=== PATIENT | female | born 1990 | race Caucasian/White ===

== ENCOUNTER 2022-10-01 19:00 | Emergency (ER) | payer OTHER, SELFPAY ==
--- NOTE | ~2022-10-01 | XR_ITS ---
EXAMINATION: XR SHOULDER, RIGHT CLINICAL INFORMATION: Muscular pain COMPARISON: None available. TECHNIQUE: Three views of the right shoulder. FINDINGS: The bones and soft tissues are normal. No fracture. Glenohumeral and acromioclavicular alignment is anatomic with normal joint space. No abnormal soft tissue calcifications. XR/XR shoulder RT min 2V IMPRESSION: Normal right shoulder.
[2022-10-01 19:13] VITALS: BP 136/65; BP 160/100; PULSE 61; PULSE 70; RESP 16; TEMP 36.9; O2SAT 100; BMI 24.2
[2022-10-01] MEDS: Ibuprofen 600 MG TABLET PO (19:22)
--- NOTE | 2022-10-01 19:51 | ED.EXTPRO ---
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 comes here for right shoulder pain last few days no direct trauma says this happened after exercise pain in the right rhomboids area patient ambulatory does not seem to be in any distress Related Data Previous Rx's Medication Instructions Recorded ibuprofen 600 mg tablet 600 mg PO Q6H PRN fever or pain 10/01/22 #30 tabs Allergies Allergy/AdvReac Type Severity Reaction Status Date / Time amoxicillin Allergy Hives Verified 10/01/22 19:12 Review of Systems Review of Systems: Yes all other systems are reviewed and are negative [facility] Social History Social History Alcohol intake: current Alcohol intake frequency: holidays/special occasions only Smoked in Last 30 Days: Yes Use of substances other than those prescribed or required for medical reasons: No Advance Directives: No Advance Directives Information Provided: Yes Patient : No Physical Exam Vital Signs: Vital Signs: Last Vital Signs Temp 98.5 F 10/01/22 19:13 Pulse 61 10/01/22 19:13 Resp 16 10/01/22 19:13 BP 136/65 10/01/22 19:13 Pulse Ox 100 10/01/22 19:13 O2 Del Method Room Air 10/01/22 19:13 BMI result Body Mass Index 24.2 Appearance: Alert. Oriented X3. No acute distress. Neck: Normal inspection. Neck supple. CVS: Normal heart rate and rhythm. Pulses normal. Respiratory: No respiratory distress. Equal air entry bilateral, no wheezing/rales/rhonchi Abdomen: Soft and nontender. Bowel sounds are present, no mass palpable, Skin: Skin warm and dry. Normal skin color. Normal skin turgor. Extremities: Mild tenderness right rhomboids area right shoulder with good range of movement open can test negative Neuro: Oriented X 3. No motor deficit. Medications Administered Discontinued Medications Generic Name Dose Route Start Last Admin Trade Name Freq PRN Reason Stop Dose Admin Ibuprofen 600 mg 10/01/22 19:10 10/01/22 19:22 Ibuprofen 600 Mg Tablet PO 10/01/22 19:11 600 mg ONCE ONE Administration Medical Decision Making Medical Decision Making [facility] Narrative: Patient clinically with rhomboid muscle strain x-ray right shoulder negative for acute, advised patient to take ibuprofen for pain Discharge Plan Discharge Clinical Impression: Strain of right rhomboid muscle Patient Disposition: Home, Self-Care Instructions: Thoracic Back Strain (ED) Additional Instructions: Apply ice pack Ibuprofen for pain as needed x-ray is normal Prescriptions: New ibuprofen 600 mg tablet 600 mg PO Q6H PRN (Reason: fever or pain) Qty: 30 0RF Interventions: ED Discharge Assessment Last Done: 10/01/22 20:45 Discharge Date/Time: 10/01/22 20:47
--- NOTE | 2022-10-01 20:15 | MHC.EDTECH ---
Nadia called at 2005 for a bls transfer back to [facility],spoke with Tuyet she gave an ETA of 30MINS.RN aware
== END 2022-10-01 20:47 | disposition home or self-care (01) ==
PROVIDERS: Emergency Provider Internal Medicine
DX: M25.511 Pain in right shoulder (principal)
CPT/HCPCS: 73030; 99283; 99284